=== PATIENT | male | born 1970 | race Caucasian/White ===

== ENCOUNTER 2022-01-31 14:22 | Inpatient (IN) | payer BC ==
[~2022-01-31] VITALS: Ht 180.3 cm; Wt 65.6 kg
[~2022-01-31 14:22] MED LIST: B-121000 MCG PO; BETAMETHASONE D15 G1 TP; COLACE 100100 MG/CAP PO; MOTRIN 600600 MG/TAB PO; OMNICEF 300MG300 MG PO; OXY IR5 MG PO; OXYCONTIN 10MG10 MG PO; PREDNISONE20 MG PO; ZYRTEC 10MG10 MG PO
[2022-01-31 15:35] LABS: BASO # 0.1 K/mm3 (0.0-0.2); BASO % 0.4 % (0.0-2.0); EOS % 0.2 % (0.0-4.0); GRAN # 10.7 K/mm3 (1.4-6.5); GRAN % 81.2 % (42.2-75.2); HEMATOCRIT 28.3 % (42.0-52.0); HEMOGLOBIN 9.3 g/dl (13.5-18.0); LYMPH # 1.1 K/mm3 (1.2-3.4); LYMPH % 8.1 % (20.0-51.0); MEAN CELL VOLUME 91 fl (80.0-100.0); MEAN CORPUSCULAR HEMOGLOBIN 30 pg (27-31); MEAN CORPUSCULAR HGB CONC 33 g/dl (33.0-37.0); MEAN PLATELET VOLUME 9.6 fl (7.4-10.4); MONO # 1.3 K/mm3 (0.1-0.6); MONO % 9.6 % (1.7-9.3); PLATELET COUNT 207 K/mm3 (130-400); REDCELL DISTRIBUTION WIDTH-CV 13.7 % (11.5-14.5)
[2022-01-31 15:57] LABS: BILIRUBIN,TOTAL 0.9 mg/dL (0.2-1.2); C-REACTIVE PROTEIN 16.64 mg/dL (0.00-0.50); CALCIUM 9.5 mg/dL (8.4-10.2); CREATININE, serum 2.84 mg/dL (0.72-1.25); POTASSIUM 4.7 mmol/L (3.5-4.5); URIC ACID 8.4 mg/dL (3.5-7.2)
[2022-01-31 16:11] LABS: COLLECTION METHOD CLEAN CATCH
[2022-01-31 16:37] LABS: AMORPHOUS CRYSTAL Present (NOT PRESENT); MUCOUS Present (NOT PRESENT); PH 5 (5-8); SQUAMOUS EPITHELIAL None Seen /hpf (0-10); URINE APPEARANCE Cloudy (CLEAR/HAZY); URINE BACTERIA Rare /hpf (NONE SEEN); URINE BILIRUBIN Negative (NEGATIVE); URINE BLOOD 1+ (NEGATIVE); URINE COLOR Yellow (YELLOW); URINE GLUCOSE Negative (NEGATIVE); URINE KETONE Negative (NEGATIVE); URINE LEUKOCYTE ESTERASE 3+ (NEGATIVE); URINE NITRATE Positive (NEGATIVE); URINE PROTEIN(semi-quant) 1+ (NEGATIVE); URINE RBC 0-2 /hpf (0-2); URINE UROBILINOGEN Negative (NEGATIVE)
[2022-01-31 19:15] VITALS: BP 109/69; PULSE 91; TEMP 98.8
[2022-01-31 20:00] VITALS: BP 109/69; PULSE 91; TEMP 98.8
--- NOTE | 2022-01-31 23:29 | NUR ---
Pt to the floor during shift change, resting quietly in bed with spouse by his side. Dr. Liu in the room at approximately 1830. Admission assessment and medication administration completed without difficulty. Pt is A&Ox4 and tolerating oral intake. Pt off the floor at [address] scan. Pt has complaints of abdominal pain, 2/10, describes it as "dull" and "nagging". No other complaints at this time, call light within reach.
[2022-01-31 23:33] VITALS: BP 112/69; PULSE 97; TEMP 98.3
[2022-02-01] VITALS (7 sets, daily range): BP systolic 117–150; BP diastolic 69–85; PULSE 74–114; TEMP 97.9–99.8
--- NOTE | 2022-02-01 03:38 | NUR ---
Critical care called and alerted of a heart rate of 153 for the pt. This nurse went to the pts room and found the pt going to the restroom and was shivering heavily. This nurse helped the pt back into bed and replaced his tele leads. A warm blanket was placed over the pt, helped calm the pts shivering. Oral temperature was WNL. Will continue to monitor.
[2022-02-01 06:17] LABS: BASO % 0.2 % (0.0-2.0); EOS % 0.1 % (0.0-4.0); GRAN # 7.8 K/mm3 (1.4-6.5); GRAN % 85.2 % (42.2-75.2); LYMPH # 0.4 K/mm3 (1.2-3.4); LYMPH % 4.7 % (20.0-51.0); MEAN CELL VOLUME 91 fl (80.0-100.0); MEAN CORPUSCULAR HGB CONC 33 g/dl (33.0-37.0); MONO # 0.9 K/mm3 (0.1-0.6); MONO % 9.3 % (1.7-9.3); PLATELET COUNT 142 K/mm3 (130-400); REDCELL DISTRIBUTION WIDTH-CV 13.6 % (11.5-14.5)
[2022-02-01 06:31] LABS: HEMOGLOBIN 7.3 g/dl (13.5-18.0); MEAN CORPUSCULAR HEMOGLOBIN 30 pg (27-31)
[2022-02-01 06:32] LABS: HEMATOCRIT 21.9 % (42.0-52.0)
[2022-02-01 06:37] LABS: CALCIUM 8.5 mg/dL (8.4-10.2); CREATININE, serum 2.52 mg/dL (0.72-1.25); MAGNESIUM 1.7 mg/dL (1.6-2.6); POTASSIUM 4.1 mmol/L (3.5-4.5)
--- NOTE | 2022-02-01 07:08 | NUR ---
Attempted to call oncall nephrology consult Emy Culp, BRAND DIRECTOR. Voicemail was left.
--- NOTE | 2022-02-01 07:09 | NUR ---
Shift report received from household worker RN
--- NOTE | 2022-02-01 09:45 | NUR ---
Merchandise Processor met with patient to discuss discharge planning. Patient was recently admitted 01/06/22-01/12/22 and was discharged home with no services. Patient stated he made his follow up appointments with primary care, urology, and nephrology. Patient advised he had no difficulty filling his discharge medications and took them as prescribed. Patient does not use any DME and is independent with ADLS. Patient is employed at [employer] and advised he had been back to work following hospitalization. Patient does not have Advance Directives and his , Cristela (ph#[phone]) is his legal next of kin. Discharge Plan: Home
--- NOTE | 2022-02-01 09:48 | NUR ---
Pt resting in bed. Reports that he feels cold. Warm blanket given. Pt. denies any difficulty with voiding. Denies abd. pain or discomfort. Denies additional needs at this time. Call light is within his reach
--- NOTE | 2022-02-01 09:51 | NUR ---
Initial visit; Patient thanked Business Analytics Faculty Member for looking in on him and offering God's blessings and keeping him in her prayers.
--- NOTE | 2022-02-01 15:01 | NUR ---
Pt resting in bed. C/o feeling chilled. Will continue to monitor temps. Pt. remains afebrile throughout shift so far. Pt. continues to report no difficulty with voiding. He denies additional needs at this time. Call light is within his reach
--- NOTE | 2022-02-01 18:14 | NUR ---
Dr. Doyle contacted earlier in shift to notify of ID consult placed today. Dr. Doyle called back and updated on pt's status.
[2022-02-02] VITALS (13 sets, daily range): BP systolic 110–134; BP diastolic 69–92; PULSE 63–103; TEMP 97.4–98.2
[2022-02-02 06:21] LABS: BASO % 0.5 % (0.0-2.0); EOS # 0.1 K/mm3 (0.0-0.7); EOS % 1.4 % (0.0-4.0); GRAN # 3.1 K/mm3 (1.4-6.5); GRAN % 70.6 % (42.2-75.2); LYMPH # 0.8 K/mm3 (1.2-3.4); LYMPH % 17.1 % (20.0-51.0); MEAN CELL VOLUME 93 fl (80.0-100.0); MEAN CORPUSCULAR HGB CONC 32 g/dl (33.0-37.0); MONO # 0.4 K/mm3 (0.1-0.6); MONO % 9.9 % (1.7-9.3); PLATELET COUNT 155 K/mm3 (130-400); RED BLOOD COUNT 2.43 M/mm3 (4.20-5.60); REDCELL DISTRIBUTION WIDTH-CV 13.8 % (11.5-14.5)
[2022-02-02 06:44] LABS: HEMATOCRIT 22.5 % (42.0-52.0); HEMOGLOBIN 7.1 g/dl (13.5-18.0); MEAN CORPUSCULAR HEMOGLOBIN 29 pg (27-31)
[2022-02-02 06:50] LABS: CREATININE, serum 2.77 mg/dL (0.72-1.25)
--- NOTE | 2022-02-02 08:00 | NUR ---
PATIENT IS A&O. VSS ON TELE. PATIENT REPORTS HE BROKE HIS FEVER YESTERDAY BUT WAS STILL SWEATING A LOT OVER NIGHT. DENIES PAIN OR NAUSEA. NPO FOR PENDING UROLOGY SURGERY TODAY. IV FLUIDS INFUSING VIA PUMP INTO LEFT UPPER ARM IV. VOIDING WITH BRIEFS INPLACE. NOTED STOOL AND FLATUS IN COLOSTOMY. PATIENT REPORTS GOOD OUTPUT FROM COLOSTOMY. HEAD TO TOE ASSESSMENT COMPLETE. AM MEDS GIVEN. INDEPENDENT IN ROOM. NO OTHER NEEDS AT THIS TIME. CALL LIGHT IN REACH.
--- NOTE | 2022-02-02 10:15 | NUR ---
NEPHROLOGY WATER RESTORATION TECHNICIAN MAKING ROUNDS. SEE ORDERS.
--- NOTE | 2022-02-02 11:50 | NUR ---
PATIENT GOING TO BE RECEIVING IV VENOFER TODAY WHICH IS NOT COMPATIBLE WITH CURRENT IV ABX. STARTED SECOND IV LINE, 20 GAUGE INTO RIGHT FORARM ON FIRST ATTEMPT. PATIENT TOLERATED WELL. CONSENT FOR SURGERY/BLOOD OBTAINED AND ON CHART. NPO. PLAN IS TO STILL GO TO OR AROUND 1600 TODAY.
--- NOTE | 2022-02-02 14:32 | NUR ---
SW informed the patient would be going to [facility] (patient primary choice) upon availability of facility. Facility staff called and stated that the earliest the patient could arrive would be February 06. Nurse and physician informed. SW will continue to follow.
--- NOTE | 2022-02-02 16:00 | NUR ---
PATIENT GOING DOWN TO OR VIA BED. CONSENT ON CHART. AT BEDSIDE. PRE-OP FLUIDS INFUSING. PATIENT OFF FLOOR.
--- NOTE | 2022-02-02 17:50 | NUR ---
PATIENT BACK IN ROOM POST OP. A&O. VSS. TELE BACK ON. MOHAN TO DD WITH SMALL AMOUNTS OF CLEAR LIGHT PEACH COLORED URINE. HEAD TO TOE ASSESSMENT WNL. AT BEDSIDE. PATIENT LOOKING AN MENU. NO OTHER NEEDS. CALL LIGHT IN REACH.
--- NOTE | 2022-02-02 22:47 | NUR ---
PATIENT IN BED ON ROOM ENTRY. ALERT AND ORIENTED. DENIES PAIN BUT STATES HE HAS MINIMAL DISCOMFORT AT CATHETER SITE. MOHAN TO DD WITH PEACH COLORED OUTPUT. IVF TO L UPPER ARM. TOLERATED DINNER WITHOUT ISSUES.
[2022-02-03 03:55] VITALS: BP 113/78; PULSE 63; TEMP 97.4
[2022-02-03 05:31] LABS: GRAN # 2.1 K/mm3 (1.4-6.5); GRAN % 80.2 % (42.2-75.2); LYMPH # 0.4 K/mm3 (1.2-3.4); LYMPH % 15.2 % (20.0-51.0); MEAN CELL VOLUME 91 fl (80.0-100.0); MEAN CORPUSCULAR HGB CONC 32 g/dl (33.0-37.0); MEAN PLATELET VOLUME 10.1 fl (7.4-10.4); MONO # 0.1 K/mm3 (0.1-0.6); MONO % 3.8 % (1.7-9.3); PLATELET COUNT 177 K/mm3 (130-400); RED BLOOD COUNT 2.55 M/mm3 (4.20-5.60); REDCELL DISTRIBUTION WIDTH-CV 13.4 % (11.5-14.5)
[2022-02-03 05:53] LABS: HEMATOCRIT 23.3 % (42.0-52.0); HEMOGLOBIN 7.5 g/dl (13.5-18.0); MEAN CORPUSCULAR HEMOGLOBIN 29 pg (27-31)
[2022-02-03 05:55] LABS: CALCIUM 8.7 mg/dL (8.4-10.2); CREATININE, serum 2.53 mg/dL (0.72-1.25); POTASSIUM 5.1 mmol/L (3.5-4.5)
[2022-02-03 07:22] VITALS: BP 126/81; PULSE 53; TEMP 98.3
[2022-02-03 12:02] VITALS: BP 124/84; PULSE 64; TEMP 97.5
[2022-02-03 16:22] VITALS: BP 113/74; PULSE 68; TEMP 98.3
--- NOTE | 2022-02-03 17:38 | NUR ---
Patient has been walking the hallway independently and tolerating well. A&Ox4. VSS. IV CDI. [place] intact. Denies pain and discomfort. Call light within reach
[2022-02-03 19:52] VITALS: BP 134/87; PULSE 65; TEMP 97.9
[2022-02-03 23:49] VITALS: BP 126/91; PULSE 65; TEMP 97.8
--- NOTE | 2022-02-04 02:15 | NUR ---
PATIENT ALERT AND ORIENTED. FAMILY AT BEDSIDE AT SHIFT CHANGE. HS MEDS PER EMAR. DENIES PAIN. MOHAN TO DD WITH CLEAR YELLOW URINE OUTPUT. BOTH IVS TO INT. DENIES ADDITIONAL NEEDS.
[2022-02-04 04:04] VITALS: BP 143/65; PULSE 64; TEMP 98
[2022-02-04 06:37] LABS: BASO % 0.4 % (0.0-2.0); EOS % 0.2 % (0.0-4.0); GRAN # 3.7 K/mm3 (1.4-6.5); GRAN % 68.3 % (42.2-75.2); LYMPH # 1.2 K/mm3 (1.2-3.4); LYMPH % 22.9 % (20.0-51.0); MEAN CELL VOLUME 91 fl (80.0-100.0); MEAN CORPUSCULAR HGB CONC 33 g/dl (33.0-37.0); MEAN PLATELET VOLUME 10.2 fl (7.4-10.4); MONO # 0.4 K/mm3 (0.1-0.6); MONO % 7.6 % (1.7-9.3); PLATELET COUNT 219 K/mm3 (130-400); RED BLOOD COUNT 2.53 M/mm3 (4.20-5.60); REDCELL DISTRIBUTION WIDTH-CV 13.4 % (11.5-14.5)
[2022-02-04 06:55] LABS: CREATININE, serum 2.36 mg/dL (0.72-1.25); POTASSIUM 4.2 mmol/L (3.5-4.5)
[2022-02-04 06:57] LABS: HEMATOCRIT 22.9 % (42.0-52.0); HEMOGLOBIN 7.5 g/dl (13.5-18.0); MEAN CORPUSCULAR HEMOGLOBIN 30 pg (27-31)
[2022-02-04 07:55] VITALS: BP 128/76; PULSE 64; TEMP 97.8
[2022-02-04 12:23] VITALS: BP 121/81; PULSE 84; TEMP 97.1
[2022-02-04] MEDS ORDERED: LEVAQUIN 750MG750 M1 PO (12:33)
[2022-02-04] MEDS ORDERED: B-121000 MCG PO (12:35)
--- NOTE | 2022-02-04 14:30 | NUR ---
1430 - Patient education provided to both patient and family regarding home wallace care. Discharge instructions and follow-up appts reviewed. All questions answered. IVs removed. All vitals stable and patient discharged from floor with family.
== END 2022-02-04 14:34 | disposition home or self-care (01) | DRG 853 ==
LOC: COL.ER 14:22 → SURG 16:39
PROVIDERS: Emergency Medicine; Physician Assistant; Registered Nurse; Urology; ADMIT Internal Medicine
PROC: 0T788DZ Dilation of Bilateral Ureters with Intraluminal Device, Via Natural or Artificial Opening Endoscopic (ICD-10-PCS; principal; 2022-02-02 16:00)
PROC: BT141ZZ Fluoroscopy of Kidneys, Ureters and Bladder using Low Osmolar Contrast (ICD-10-PCS; 2022-02-02 16:00)
DX: A41.9 Sepsis, unspecified organism (principal); J18.9 Pneumonia, unspecified organism; N17.9 Acute kidney failure, unspecified; N13.6 Pyonephrosis; N18.30 Chronic kidney disease, stage 3 unspecified; D63.1 Anemia in chronic kidney disease; M10.9 Gout, unspecified; J47.9 Bronchiectasis, uncomplicated; B96.5 Pseudomonas (aeruginosa) (mallei) (pseudomallei) as the cause of diseases classified elsewhere; E87.5 Hyperkalemia; B96.1 Klebsiella pneumoniae [K. pneumoniae] as the cause of diseases classified elsewhere; Z85.048 Personal history of other malignant neoplasm of rectum, rectosigmoid junction, and anus; Z98.52 Vasectomy status; Z85.038 Personal history of other malignant neoplasm of large intestine; Z92.21 Personal history of antineoplastic chemotherapy; Z92.3 Personal history of irradiation; Z72.89 Other problems related to lifestyle
CPT/HCPCS: 99239; C1769; C2617; J0690; J0696; J1100; J1170; J1644; J1756; J1956; J2405; J2543; J2704; J3010; J7030; J7050; Q9967

== ENCOUNTER 2022-11-20 09:20 | Day surgery (SDC) | payer BC ==
[~2022-11-20] VITALS: Ht 180.3 cm; Wt 70.4 kg
[2022-11-20] VITALS (7 sets, daily range): BP systolic 129–157; BP diastolic 85–99; PULSE 53–72; TEMP 97.8–98.5
[~2022-11-20 09:20] MED LIST changes: +LEVAQUIN 750MG750 M1 PO
[2022-11-20 11:49] LABS: CREATININE, serum 2.36 mg/dL (0.72-1.25)
--- NOTE | 2022-11-20 14:15 | NUR ---
1305 RETURNS TO ROOM 4 PER CART. AWAKE, ALERT. RESP UNLABORED. HOB ELEVATED 40 DEGREES. VITAL SIGNS OBTAINED. DENIES PAIN OR URINARY URGENCY. IN ROOM. CALL LIGHT AT SIDE. 1320 TOLERATES PO JUICE WITHOUT NAUSEA. 1335 TOLERATES PO MUFFIN DENIES PAIN OR URINARY URGENCY 1355 DISCHARGE INSTRUCITONS REVIEWED. PATIENT AND VERBALIZE UNDERSTANDING. COPY PROVIDED IN DISCHARGE FOLDER. 1405 SITS ON EDGE OF BED. DRESSES SELF
== END 2022-11-20 14:15 | disposition home or self-care (01) ==
LOC: SDCO 09:20
PROVIDERS: Urology
DX: N13.1 Hydronephrosis with ureteral stricture, not elsewhere classified (principal); N10 Acute pyelonephritis; Z46.6 Encounter for fitting and adjustment of urinary device
CPT/HCPCS: C1769; C2617; J0690; J1100; J2405; J2704; J3010; J7120

== ENCOUNTER 2023-04-08 18:37 | Inpatient (IN) | payer BC ==
[~2023-04-08] VITALS: Ht 180.3 cm; Wt 67.9 kg
[2023-04-08 19:16] LABS: HEMOGLOBIN 11.2 g/dl (13.5-18.0); MEAN CELL VOLUME 92 fl (80.0-100.0); MEAN CORPUSCULAR HEMOGLOBIN 31 pg (27-31); MEAN CORPUSCULAR HGB CONC 33 g/dl (33.0-37.0); MEAN PLATELET VOLUME 9.4 fl (7.4-10.4); PLATELET COUNT 241 K/mm3 (130-400); RED BLOOD COUNT 3.63 M/mm3 (4.20-5.60); REDCELL DISTRIBUTION WIDTH-CV 13.2 % (11.5-14.5)
[2023-04-08 19:21] LABS: HEMATOCRIT 33.5 % (42.0-52.0)
[2023-04-08 19:35] LABS: ALBUMIN 3.4 gm/dL (3.5-5.0); BILIRUBIN,TOTAL 0.5 mg/dL (0.2-1.2); CALCIUM 9.4 mg/dL (8.4-10.2); CREATININE, serum 5.07 mg/dL (0.72-1.25); POTASSIUM 3.7 mmol/L (3.5-4.5); TOTAL PROTEIN 8.6 gm/dL (6.2-8.1)
[2023-04-08 19:48] LABS: BAND 1 % (0-10); EOSINOPHIL 1 % (0-4); LYMPHOCYTE 5 % (20.0-51.0); NEUTROPHILS 89 % (42.0-75.2)
[2023-04-08 19:49] LABS: PLATELET ESTIMATE NORMAL (NORMAL)
[2023-04-08 20:14] LABS: COLLECTION METHOD CLEAN CATCH
[2023-04-08 20:21] LABS: MUCOUS Present (NOT PRESENT); SQUAMOUS EPITHELIAL None Seen /hpf (0-10); URINE APPEARANCE Cloudy (CLEAR/HAZY); URINE BACTERIA None Seen /hpf (NONE SEEN); URINE BLOOD 2+ (NEGATIVE); URINE COLOR Yellow (YELLOW); URINE GLUCOSE Negative (NEGATIVE); URINE KETONE Negative (NEGATIVE); URINE NITRATE Positive (NEGATIVE); URINE PROTEIN(semi-quant) 3+ (NEGATIVE); URINE RBC 20-50 /hpf (0-2); URINE UROBILINOGEN 0.2 E.U/dL (0.2-1.0)
--- NOTE | 2023-04-08 22:45 | NUR ---
Ed arrived on the unit from the ED. Stacey is able to stand and walk to the bed with no troubles. Patient comes with his phone, tablet, synchronizer, wallet, and clothes all in a personal belongings bag. IV in right ac is clean, dry, intact with NS running at 150 mL/hr with no complications. Patient deneis of any pain at this time. Patient oriented to room, call light, phone, bathroom, and bed. Denies any needs at this time. Call light and personal items in reach. Bed in low postion.
[2023-04-08 23:01] VITALS: BP 143/79; PULSE 105; TEMP 98.6
[2023-04-09] VITALS (11 sets, daily range): BP systolic 102–139; BP diastolic 58–78; PULSE 74–118; TEMP 97.9–103.3
[2023-04-09 05:53] LABS: MEAN CELL VOLUME 91 fl (80.0-100.0); MEAN CORPUSCULAR HGB CONC 34 g/dl (33.0-37.0); MEAN PLATELET VOLUME 9.7 fl (7.4-10.4); PLATELET COUNT 211 K/mm3 (130-400); RED BLOOD COUNT 3.08 M/mm3 (4.20-5.60); REDCELL DISTRIBUTION WIDTH-CV 13.2 % (11.5-14.5)
[2023-04-09 05:59] LABS: HEMATOCRIT 27.9 % (42.0-52.0); HEMOGLOBIN 9.5 g/dl (13.5-18.0); MEAN CORPUSCULAR HEMOGLOBIN 31 pg (27-31)
--- NOTE | 2023-04-09 06:00 | NUR ---
Patient resting bed. Denies any pain or needs at this time. Patient monitored throughout the night by this nurse.
[2023-04-09 06:09] LABS: CALCIUM 8.7 mg/dL (8.4-10.2); CREATININE, serum 4.72 mg/dL (0.72-1.25); POTASSIUM 3.8 mmol/L (3.5-4.5)
--- NOTE | 2023-04-09 06:30 | NUR ---
REPORT RECEIVED FROM DEVONTE
[2023-04-09 06:43] LABS: BAND 1 % (0-10); LYMPHOCYTE 3 % (20.0-51.0); NEUTROPHILS 88 % (42.0-75.2)
[2023-04-09 06:44] LABS: PLATELET ESTIMATE NORMAL (NORMAL)
--- NOTE | 2023-04-09 07:38 | NUR ---
Attempted to reach Dr. Liu for critical lab of CO2 of 13. Did not answer at this time. Will pass on to dayshift.
--- NOTE | 2023-04-09 09:58 | NUR ---
UROLOGY CONSULT CALLED. DR STEPHEN NOTIFIED THIS NURSE THAT HE IS ALREADY AWARE
--- NOTE | 2023-04-09 11:39 | NUR ---
PT AWAKE IN BED UPON ENTERING. FLUIDS RUNNING PER ORDER AND PT REPORTS BILATERAL FLANK PAIN RATING IT A 2/10. PT HAS AN ILEOSTOMY TO LEFT LOWER QUADRANT WHICH HE MANAGES INDEPENDENTLY. PT STATES THAT HE HASNT CHANGED BAG IN 4 DAYS AND "ITS ABOUT TIME TO GET CHANGED" THIS NURSE OFFERED PT SUPPLIES TO MANAGE ILEOSTOMY. PT REPORTS NOT HAVING AN APPETITE AT THIS TIME. PT DENIES NEEDS AT THIS TIME. CALL LIGHT IN REACH, BED IN LOWEST POSITION.
--- NOTE | 2023-04-09 16:00 | NUR ---
PT GIVEN PRN TYLENOL FOR FEVER AND TEMP DOWN TO 98.8
--- NOTE | 2023-04-09 16:44 | NUR ---
Kiln Hand met with Patient at bedside to conduct Care Managment Assessment and discuss discharge planning. Patient lives in [place], [place] with his and children. Patient is established with PCP Dr. Reed and is covered by [facility] for insurance. Patient requests discharge medications be sent to [facility]. Patient denies the use of DME and endorses independent ADL/IADLs. Patient declines DPOAHC forms at this time. Discharge Plan: Home pending med recs.
--- NOTE | 2023-04-09 17:30 | NUR ---
AT BEDSIDE. 16FR INDWELLING CATHETER INSERTED PER ORDER, BALLOON FILLED WITH 10 MLS OF WATER, PT TOLERATED WELL. YELLOW, CLEAR URINE NOTED FLOWING THROUGH TUBING AND SECURED TO LEFT THIGH. NEW BAG OF FLUIDS HUNG AND PT GIVEN OSTOMY SUPPLIES. PT DENIES NEEDS AT THIS TIME. BED IN LOWEST POSITION, CALL LIGHT IN REACH.
--- NOTE | 2023-04-09 20:45 | NUR ---
Paitent resting in bed. Denies any pain at this time. Lungs clear in all lobes, bowels active in all quadrants, and heart rate regular. IV in right forearm is clean, dry, intact, and infusing with no complications. Denies any pain at this time. Call light and personal items in reach. Bed in low position.
[2023-04-10] VITALS (12 sets, daily range): BP systolic 105–154; BP diastolic 70–87; PULSE 74–108; TEMP 98–98.8
[2023-04-10 06:31] LABS: BASO % 0.4 % (0.0-2.0); EOS % 0.3 % (0.0-4.0); GRAN # 8.7 K/mm3 (1.4-6.5); GRAN % 80.2 % (42.2-75.2); LYMPH # 0.8 K/mm3 (1.2-3.4); LYMPH % 7.7 % (20.0-51.0); MEAN CELL VOLUME 91 fl (80.0-100.0); MEAN CORPUSCULAR HGB CONC 34 g/dl (33.0-37.0); MEAN PLATELET VOLUME 9.9 fl (7.4-10.4); MONO # 1.2 K/mm3 (0.1-0.6); MONO % 10.8 % (1.7-9.3); PLATELET COUNT 193 K/mm3 (130-400); RED BLOOD COUNT 2.68 M/mm3 (4.20-5.60); REDCELL DISTRIBUTION WIDTH-CV 13.4 % (11.5-14.5)
[2023-04-10 06:41] LABS: HEMATOCRIT 24.4 % (42.0-52.0); HEMOGLOBIN 8.3 g/dl (13.5-18.0); MEAN CORPUSCULAR HEMOGLOBIN 31 pg (27-31)
[2023-04-10 06:52] LABS: CALCIUM 8.6 mg/dL (8.4-10.2); CREATININE, serum 4.13 mg/dL (0.72-1.25); POTASSIUM 4.6 mmol/L (3.5-4.5)
--- NOTE | 2023-04-10 07:00 | NUR ---
Patient resting in bed. Patient states he is starting to shiver again and requests meds to prevent it from getting worse. Meds given. Denies any pain at this time. Patient monitored throughout the night by this nurse. Denies any other needs at this time. Call light and personal items in reach. Bed in low position.
--- NOTE | 2023-04-10 07:20 | NUR ---
PT AWAKE IN BED UPON ENTERING. PT REPORTS SOME MILD BILATERAL FLANK PAIN. FLUIDS RUNNING PER ORDER. PT DENIES NEEDS AT THIS TIME. BED IN LOWEST POSITION, CALL LIGHT IN REACH.
--- NOTE | 2023-04-10 10:36 | NUR ---
Initial visit; "Gene" thanked Bank Officer for coming into his room and visiting. Bank Officer urged him to discuss his health issues with her. It seemed almost cathartic for him to talk about his ongoing health issues and to have Bank Officer offer to keep him in her prayers for healing.
--- NOTE | 2023-04-10 15:09 | NUR ---
NEW BAG OF FLUIDS STARTED. PT REPORTS CHILLS STARTING AND IS SHIVERING IN BED UPON ENTERING. TYLENOL GIVEN
[2023-04-11] VITALS (12 sets, daily range): BP systolic 129–147; BP diastolic 78–86; PULSE 70–94; TEMP 98.2–99.3
--- NOTE | 2023-04-11 01:09 | NUR ---
03/10 2000 PT. STATES THAT HE IS HAVING SOME ABD PAIN, BUT DENIES WANTING ANY PAIN MEDICINE AT THE MOMENT, i LET HIM KNOW TO CALL ME IF HE STARTS HAVING MORE PAIN, AND IF HE CHANGED HIS MIND ABOUT PAIN MEDS, WELL TO CALL FOR SOME TYLENOL IF HE STARTS HAVING CHILLS, OR FEELS LIKE HIS FEVER IS COMING BACK, WILL CONTINUE TO MONITOR.
[2023-04-11 07:14] LABS: BASO # 0.1 K/mm3 (0.0-0.2); BASO % 0.7 % (0.0-2.0); EOS % 0.5 % (0.0-4.0); GRAN # 5.8 K/mm3 (1.4-6.5); LYMPH # 0.6 K/mm3 (1.2-3.4); LYMPH % 8.4 % (20.0-51.0); MEAN CELL VOLUME 91 fl (80.0-100.0); MEAN CORPUSCULAR HGB CONC 34 g/dl (33.0-37.0); MEAN PLATELET VOLUME 9.7 fl (7.4-10.4); MONO # 0.9 K/mm3 (0.1-0.6); MONO % 12.1 % (1.7-9.3); PLATELET COUNT 200 K/mm3 (130-400); RED BLOOD COUNT 2.83 M/mm3 (4.20-5.60); REDCELL DISTRIBUTION WIDTH-CV 13.3 % (11.5-14.5)
[2023-04-11 07:17] LABS: HEMATOCRIT 25.7 % (42.0-52.0); HEMOGLOBIN 8.6 g/dl (13.5-18.0); MEAN CORPUSCULAR HEMOGLOBIN 30 pg (27-31)
[2023-04-11 07:24] LABS: CALCIUM 8.8 mg/dL (8.4-10.2); CREATININE, serum 3.16 mg/dL (0.72-1.25); POTASSIUM 3.8 mmol/L (3.5-4.5)
--- NOTE | 2023-04-11 08:13 | NUR ---
Patient awake, alert and oriented, eating breakfast in bed. States he has a little lower back pain but does not want pain medication at this time. Denies shortness of breath or nausea. Bed in lowest position with call light within reach.
--- NOTE | 2023-04-11 23:20 | NUR ---
I LET PT. KNOW THAT IT WAS GOOD THAT THEY HAD DECREASED THE AMOUNT OF FLUIDS HE WAS GETTING PER HR, BUT THAT THE FLUIDS THEY CHANGED HIM TO WERE NOT COMPATIBLE WITH THE ANTIBIOTIC I HAD COME TO GIVE HIM, SO I NEEDED TO UNHOOK HIS IV TUBING, AND FLUSH HIS IV BEFORE I COULD GIVE IT, PT. STATED UNDERSTANDING, PT. STILL HAVING EXCELLENT OUTPUT FROM HIS MOHAN, I EMPTIED 1300 ML WHILE I WAS IN THERE, WILL CHECK Q4H WHEN I GO IN TO GET A SET OF VITALS TONIGHT, THAT WAY IT WON'T GET TOO FULL, WILL CONTINUE TO MONITOR.
[2023-04-12 00:52] VITALS: BP_SYST 145
[2023-04-12 04:22] VITALS: BP 154/91; PULSE 69; TEMP 98.6
[2023-04-12 04:48] VITALS: BP_SYST 154
[2023-04-12 06:43] LABS: BASO # 0.1 K/mm3 (0.0-0.2); BASO % 0.8 % (0.0-2.0); EOS # 0.2 K/mm3 (0.0-0.7); EOS % 3.2 % (0.0-4.0); GRAN # 3.8 K/mm3 (1.4-6.5); LYMPH # 1.1 K/mm3 (1.2-3.4); LYMPH % 19.1 % (20.0-51.0); MEAN CELL VOLUME 90 fl (80.0-100.0); MEAN CORPUSCULAR HGB CONC 34 g/dl (33.0-37.0); MEAN PLATELET VOLUME 9.5 fl (7.4-10.4); MONO # 0.7 K/mm3 (0.1-0.6); MONO % 12.4 % (1.7-9.3); PLATELET COUNT 232 K/mm3 (130-400); RED BLOOD COUNT 2.87 M/mm3 (4.20-5.60); REDCELL DISTRIBUTION WIDTH-CV 13.1 % (11.5-14.5)
[2023-04-12 06:56] LABS: HEMATOCRIT 25.8 % (42.0-52.0); HEMOGLOBIN 8.7 g/dl (13.5-18.0); MEAN CORPUSCULAR HEMOGLOBIN 30 pg (27-31)
[2023-04-12 07:01] LABS: CALCIUM 9.1 mg/dL (8.4-10.2); CREATININE, serum 2.65 mg/dL (0.72-1.25); POTASSIUM 3.4 mmol/L (3.5-4.5)
--- NOTE | 2023-04-12 07:52 | NUR ---
UPON ENTERING ROOM PATIENT WAS LAYING IN BED RESTING WITH HIS EYES CLOTHES. PATIENT IS ALERT AND ORIENTED X4. PATIENT REPORTS PAIN ON ABDOMEN WHEN HE TAKES DEEP BREATHS RATING IT A 3 ON A SCALE OF 1-10. PATIENT DOES NOT WANT ANYTHING FOR IT.HE SAID" I THINK I'M GONNA WALK FOR A LITTLE BIT INSTEAD".PATIENT HAS A MOHAN INPLACE WITH 50ML. PATIENT CALL LIGHT WITHIN REACH. BED AT LOWEST SETTING.
[2023-04-12 07:59] VITALS: BP 142/91; PULSE 67; TEMP 97.7
[2023-04-12] MEDS ORDERED: CEFTIN 250250 MG/TAB PO (08:40)
[2023-04-12 09:00] VITALS: BP_SYST 142
== END 2023-04-12 12:57 | disposition home or self-care (01) | DRG 698 ==
LOC: COL.ER 18:37 → MEDICAL 21:13
PROVIDERS: Nurse Practitioner Family; Personal Emergency Response Attendant; ADMIT Internal Medicine
DX: T83.593A Infection and inflammatory reaction due to other urinary stents, initial encounter (principal); A41.9 Sepsis, unspecified organism; N17.9 Acute kidney failure, unspecified; N39.0 Urinary tract infection, site not specified; E87.1 Hypo-osmolality and hyponatremia; E87.20 Acidosis, unspecified; D64.9 Anemia, unspecified; E87.6 Hypokalemia; B96.1 Klebsiella pneumoniae [K. pneumoniae] as the cause of diseases classified elsewhere; F17.220 Nicotine dependence, chewing tobacco, uncomplicated; Z85.038 Personal history of other malignant neoplasm of large intestine; Z92.21 Personal history of antineoplastic chemotherapy; Z92.3 Personal history of irradiation
CPT/HCPCS: J0696; J1956; J2270; J2405; J7030; J7120

== ENCOUNTER 2023-04-17 06:36 | Day surgery (SDC) | payer BC ==
[~2023-04-17] VITALS: Ht 180.3 cm; Wt 69.3 kg
[~2023-04-17 06:36] MED LIST changes: +CEFTIN 250250 MG/TAB PO
[2023-04-17] MEDS ORDERED: CEFTIN 250250 MG/TAB PO (07:14)
[2023-04-17 07:38] VITALS: BP 135/87; PULSE 73; TEMP 98
[2023-04-17 09:15] VITALS: BP 114/76; PULSE 74; TEMP 97.3
[2023-04-17 09:30] VITALS: BP 118/77; PULSE 74
[2023-04-17 09:45] VITALS: BP 124/77; PULSE 72
--- NOTE | 2023-04-17 10:23 | NUR ---
0915-REPORT OBTAINED FROM LEIA TATUM. PT ARRIVED VIA CART [place] [facility], FAMILY AT BEDSIDE. PT ALERT AND ORIENTED, REPORTS PAIN 3/10 TO ABDOMEN. VITAL SIGNS TAKEN, VSS. PT OFFERED PO INTAKE 0930-PT TOLERATING PO INTAKE WELL. VSS. REPORTS PAIN AT TOLERABLE LEVEL 0950-PATIENT AMBULATED WITH ASSISTANCE TO BATHROOM, PT VOIDED AT THIS TIME. REPORTS SMALL BLOOD CLOTS AND PINK TINGED URINE. 55-DISCHARGE INSTRUCTIONS REVIEWED WITH PT AND SPOUSE, QUESTIONS INVITED. IV CATHETER DISCONTINUED, CATHETER TIP INTACT. PRESSURE BANDAGE APPLIED. PT CHANGED WITH SPOUSE ASSIST. 1011-PT DISCHARGED HOME TO [facility] VIA WHEELCHAIR, ALL BELONGINGS AND DISCHARGE INSTRUCTIONS SENT WITH PT.
== END 2023-04-17 10:11 | disposition home or self-care (01) ==
LOC: SDCO 06:36
DX: N13.1 Hydronephrosis with ureteral stricture, not elsewhere classified (principal); R31.0 Gross hematuria
CPT/HCPCS: C1769; C2617; J0690; J2405; J2704; J3010; J7120